=== PATIENT | male | born 1990 | race Caucasian/White ===

== ENCOUNTER 2019-05-16 13:37 | Emergency (ER) | payer MEDICAID ==
[~2019-05-16] VITALS: Ht 195.6 cm; Wt 102.3 kg
[2019-05-16 13:39] VITALS: BP 133/91
== END 2019-05-16 14:45 | disposition home or self-care (01) ==
LOC: ER 13:38 → EDBD 13:38 → ER 14:45
DX: S80.211A Abrasion, right knee, initial encounter (principal); M25.461 Effusion, right knee; W18.39XA Other fall on same level, initial encounter; Y93.01 Activity, walking, marching and hiking; Y92.89 Other specified places as the place of occurrence of the external cause; Y99.9 Unspecified external cause status
CPT/HCPCS: 29505; 73564; 99283